=== PATIENT | female | born 1955 | race Caucasian/White ===

== ENCOUNTER 2019-08-28 23:48 | Emergency (ER) | payer OTHER ==
[~2019-08-28] VITALS: Ht 165.1 cm; Wt 66.2 kg
[2019-08-29] MEDS ORDERED: BENADRYL50 MG (00:02)
[2019-08-29] MEDS ORDERED: LEVOTHYROXINE (00:02)
[2019-08-29] MEDS ORDERED: CLONAZEPAM2 MG (00:02)
[2019-08-29] MEDS ORDERED: LEXAPRO20 MG (00:02)
[2019-08-29] MEDS ORDERED: GLIMEPIRIDE4 M1 (00:03)
[2019-08-29] MEDS ORDERED: JANUMET 50-5001 EACH (00:03)
[2019-08-29] MEDS ORDERED: NOVOLOG FL100 UNIT/1 (00:03)
[2019-08-29] MEDS ORDERED: HYOSCYAMINE0.125 M2 (00:04)
[2019-08-29] MEDS ORDERED: COZAAR25 MG (00:04)
[2019-08-29] MEDS ORDERED: OMEPRAZOLE (00:04)
[2019-08-29] MEDS ORDERED: CARAFATE1 GM (00:04)
[2019-08-29] MEDS ORDERED: REGLAN5 MG/5 ML (00:05)
[2019-08-29] MEDS ORDERED: PROBIOTIC1 EAC2 (00:05)
[2019-08-29] MEDS ORDERED: BENZONATATE200 M1 (00:05)
[2019-08-29] MEDS ORDERED: GAVISCON LIQUI355 ML (00:05)
[2019-08-29] MEDS ORDERED: GABAPENTIN300 M2 (00:06)
[2019-08-29] MEDS ORDERED: TIZANIDINE HCL4 M1 (00:06)
[2019-08-29] MEDS ORDERED: ETODOLAC (00:07)
[2019-08-29] MEDS ORDERED: ZYNCOF 20-400120 ML PO (06:04)
[2019-08-29] MEDS ORDERED: XOPENEX0.63 MG/3 IH ×2 (06:04→06:05)
== END 2019-08-29 06:11 | disposition home or self-care (01) ==
LOC: ER 23:48
DX: J40 Bronchitis, not specified as acute or chronic (principal); R05 Cough